=== PATIENT | female | born 1975 | race Caucasian/White ===

== ENCOUNTER → 2021-03-29 | Outpatient (CLI) | payer OTHER ==
[~2021-03-29] MED LIST: COLACE 100MG C100 MG PO; DAILY VALUE1 EACH PO; HYDROCODON-ACE1 EAC6 PO; IBUPROFEN800 MG PO; ZOFRAN 4 MG TAB4 MG PO
[2021-03-29 11:45] LABS: HEMOGLOBIN 12.2 gm/dl (12.3-15.3); RED BLOOD COUNT 4.36 M/UL (4.00-5.10); WHITE BLOOD COUNT 5.7 K/UL (4.5-11.0)
== END ==
LOC: OPSV2 10:00
PROVIDERS: Obstetrics & Gynecology
DX: Z01.818 Encounter for other preprocedural examination (principal); D21.9 Benign neoplasm of connective and other soft tissue, unspecified
CPT/HCPCS: 36415; 81001; 85025; 93005

== ENCOUNTER → 2021-03-31 | Day surgery (SDC) | payer OTHER | END | disposition home or self-care (01) | LOC: OR 05:20 | DX: N93.9 Abnormal uterine and vaginal bleeding, unspecified (principal); N92.6 Irregular menstruation, unspecified; N92.0 Excessive and frequent menstruation with regular cycle; N85.8 Other specified noninflammatory disorders of uterus; D25.9 Leiomyoma of uterus, unspecified; Z20.822 Contact with and (suspected) exposure to COVID-19 | CPT/HCPCS: 36415; 84702; J0690; J1100; J1885; J2001; J2250; J2405; J2704; J2795; J3010; J7030; J7120 ==